=== PATIENT | female | born 1970 | race African-American/Black ===

== ENCOUNTER 2019-03-16 19:09 | Emergency (ER) | payer SELFPAY ==
[~2019-03-16] VITALS: Ht 149.9 cm; Wt 85.7 kg
[2019-03-16] MEDS ORDERED: IV NORMAL SALINE 1000ML BAG 1,000 ML IV SCH (19:17)
[2019-03-16 19:29] LABS: BASO # 0.1 x10^3/uL (0.0-0.2); BASO % 1 % (0-3); EOS # 0.1 x10^3/uL (0.0-0.7); EOS % 1 % (0-3); HEMATOCRIT 41.8 % (36.0-47.0); HEMOGLOBIN 13.3 g/dL (12.0-15.5); LYMPH # 4.4 x10^3/uL (1.0-4.8); LYMPH % 48 % (24-48); MEAN CORPUSCULAR HEMOGLOBIN 29 pg (25-35); MEAN CORPUSCULAR HGB CONC 32 g/dL (31-37); MEAN CORPUSCULAR VOLUME 90 fL (79-100); MONO # 0.5 x10^3/uL (0.0-1.1); MONO % 6 % (0-9); NEUT % 44 % (31-73); PLATELET COUNT 258 x10^3/uL (140-400); RED BLOOD COUNT 4.65 x10^6/uL (3.50-5.40); RED CELL DISTRIBUTION WIDTH 14.5 % (11.5-14.5); WHITE BLOOD COUNT 9.1 x10^3/uL (4.0-11.0)
[2019-03-16] MEDS ORDERED: ASPIRIN CHEWABLE 81 MG TABLET. PO ONE (19:30)
[2019-03-16] MEDS ORDERED: ADENOSINE 6 MG/2 ML VIAL. IV ONE (19:30)
[2019-03-16 19:38] LABS: CALCIUM 8.5 mg/dL (8.5-10.1); CREATININE 1.1 mg/dL (0.6-1.0); GFR 52.8; POTASSIUM 3.7 mmol/L (3.5-5.1)
[2019-03-16 19:46] LABS: ALBUMIN 3.7 g/dL (3.4-5.0); ALBUMIN/GLOBULIN RATIO 0.8 (1.0-1.7); MAGNESIUM 1.5 mg/dL (1.8-2.4); TOTAL BILIRUBIN 0.4 mg/dL (0.2-1.0); TOTAL PROTEIN 8.1 g/dL (6.4-8.2)
--- NOTE | 2019-03-16 19:47 | PHYS DOC ---
Adult General Chief Complaint Chief Complaint: CHEST PAIN HPI HPI Patient is a 48-year-old female who presents with complaint of chest pain and palpitations that started at about 4:00 PM today. Patient has history of SVT and states that her last episode was approximately year ago. She rates pain in her chest a 7 out of 10. She denies any nausea, vomiting or diaphoresis. Patient denies any exacerbating or alleviating factors to the chest pain although does report to some exertional shortness of breath.[] Review of Systems Review of Systems Constitutional: Denies fever or chills [] Respiratory: Positive exertional shortness of breath [] Cardiovascular: No additional information not addressed in HPI [] GI: Denies abdominal pain, nausea, vomiting or diarrhea [] Integument: Denies rash or skin lesions [] Neurologic: Denies headache, focal weakness or sensory changes [] All other systems were reviewed and found to be within normal limits, except as documented in this note. Current Medications Current Medications Current Medications Medications (Trade) Dose Ordered Sig/Natalia Start Time Stop Time Status Last Admin Dose Admin Adenosine (Adenocard) 6 mg 1X ONCE 03/16/19 19:30 03/16/19 19:32 DC Aspirin (Children'S Aspirin) 324 mg 1X ONCE 03/16/19 19:30 03/16/19 19:32 DC 03/16/19 19:37 324 MG Sodium Chloride 1,000 ml @ 1,000 mls/hr Q1H 03/16/19 19:17 03/16/19 20:16 DC 03/16/19 19:30 1,000 MLS/HR Allergies Allergies Allergies Coded Allergies Type Severity Reaction Last Updated Verified Sulfa (Sulfonamide Antibiotics) Allergy Intermediate SWELLING AND ITCHING 03/16/19 Yes Physical Exam Physical Exam Constitutional: Well developed, well nourished, no acute distress, non-toxic appearance. [] HENT: Normocephalic, atraumatic, bilateral external ears normal, oropharynx moist, no oral exudates, nose normal. [] Eyes: PERRLA, EOMI, conjunctiva normal, no discharge. [] Neck: Normal range of motion, no tenderness, supple, no stridor. [] Cardiovascular: Markedly tachycardic rate with regular rhythm[] Lungs & Thorax: Bilateral breath sounds clear to auscultation [] Abdomen: Bowel sounds normal, soft, no tenderness. [] Skin: Warm, dry, no erythema, no rash. [] Extremities: No tenderness, no cyanosis, no clubbing, ROM intact, no edema. [] Neurologic: Alert and oriented X 3, no focal deficits noted. [] Current Patient Data Vital Signs Vital Signs Date Time Temp Pulse Resp B/P (MAP) Pulse Ox O2 Delivery O2 Flow Rate FiO2 03/16/19 20:12 86 18 116/69 (85) 97 Room Air 03/16/19 19:18 97.6 97.6 Lab Values Laboratory Tests Test 03/16/19 19:19 White Blood Count 9.1 x10^3/uL (4.0-11.0) Red Blood Count 4.65 x10^6/uL (3.50-5.40) Hemoglobin 13.3 g/dL (12.0-15.5) Hematocrit 41.8 % (36.0-47.0) Mean Corpuscular Volume 90 fL (79-100) Mean Corpuscular Hemoglobin 29 pg (25-35) Mean Corpuscular Hemoglobin Concent 32 g/dL (31-37) Red Cell Distribution Width 14.5 % (11.5-14.5) Platelet Count 258 x10^3/uL (140-400) Neutrophils (%) (Auto) 44 % (31-73) Lymphocytes (%) (Auto) 48 % (24-48) Monocytes (%) (Auto) 6 % (0-9) Eosinophils (%) (Auto) 1 % (0-3) Basophils (%) (Auto) 1 % (0-3) Neutrophils # (Auto) 4.0 x10^3/uL (1.8-7.7) Lymphocytes # (Auto) 4.4 x10^3/uL (1.0-4.8) Monocytes # (Auto) 0.5 x10^3/uL (0.0-1.1) Eosinophils # (Auto) 0.1 x10^3/uL (0.0-0.7) Basophils # (Auto) 0.1 x10^3/uL (0.0-0.2) Sodium Level 141 mmol/L (136-145) Potassium Level 3.7 mmol/L (3.5-5.1) Chloride Level 102 mmol/L (98-107) Carbon Dioxide Level 28 mmol/L (21-32) Anion Gap 11 (6-14) Blood Urea Nitrogen 7 mg/dL (7-20) Creatinine 1.1 mg/dL (0.6-1.0) H Estimated GFR (Cockcroft-Gault) 52.8 BUN/Creatinine Ratio 6 (6-20) Glucose Level 384 mg/dL (70-99) H Calcium Level 8.5 mg/dL (8.5-10.1) Magnesium Level 1.5 mg/dL (1.8-2.4) L Total Bilirubin 0.4 mg/dL (0.2-1.0) Aspartate Amino Transferase (AST) 49 U/L (15-37) H Alanine Aminotransferase (ALT) 53 U/L (14-59) Alkaline Phosphatase 82 U/L (46-116) Troponin I Quantitative < 0.017 ng/mL (0.000-0.055) IE-Odp-I-Type Natriuretic Peptide 178 pg/mL (0-124) H Total Protein 8.1 g/dL (6.4-8.2) Albumin 3.7 g/dL (3.4-5.0) Albumin/Globulin Ratio 0.8 (1.0-1.7) L Laboratory Tests 03/16/19 19:19 Laboratory Tests 03/16/19 19:19 EKG EKG [] Interpretation Time: EKG demonstrates SVT with rate of 168. Repeat EKG post vagal maneuvers demonstrates sinus rhythm with rate of 94. Radiology/Procedures Radiology/Procedures [] Course & Med Decision Making Course & Med Decision Making Pertinent Labs and Imaging studies reviewed. (See chart for details) Patient moved to room upon arrival was evaluated by your medical staff after which cardiac workup initiated on patient. We were prepared to provide adenosine for treatment of SVT; however, after bearing down/vagal maneuvers, patient converted spontaneously. Patient's workup is returned with findings of hyperglycemia but otherwise essentially unremarkable. Patient was given 4 baby aspirin as well. Patient states that after receiving aspirin, she no longer had any chest discomfort. I did discuss admission with the patient; however, patient states that she does not want be admitted and wants to be discharged home. Patient agrees to return to the emergency room immediately if she has recurrence of chest pain or palpitations. Dragon Disclaimer Dragon Disclaimer This electronic medical record was generated, in whole or in part, using a voice recognition dictation system. Departure Departure Impression: Primary Impression: Supraventricular tachycardia Additional Impression: Chest pain Disposition: 01 HOME, SELF-CARE Condition: STABLE Patient Instructions: Chest Pain (Nonspecific), Supraventricular Tachycardia Additional Instructions: Call to schedule follow-up appointment with your primary care provider first thing Monday morning. If you have recurrence of chest pain or palpitations, return to emergency room right away. Problem Qualifiers Additional Impression: Chest pain Chest pain type: unspecified Qualified Codes: R07.9 - Chest pain, unspecified SPIKE NARAYAN Jr. DO Mar 16, 2019 19:47
[2019-03-16 21:12] VITALS: BP 97/55
--- NOTE | 2019-03-16 21:57 | RAD ---
PORTABLE CHEST 1V History: Chest pain Comparison: None. Findings: Single view of the chest is submitted. There is no infiltrate, pneumothorax, or effusion. The pericardial cardiac silhouette is within normal limits in size given technique and somewhat suboptimal inspiration. Impression: 1. There is no radiographic evidence of acute cardiopulmonary disease. Electronically signed by: Prince Moe MD (03/16/2019 9:54 PM) [employer]
--- NOTE | 2019-03-17 12:00 | EKG ---
[facility] [address] [place] [address] Test Date: 2019-03-16 Test Time: 19:25:47 Pat Name: JAMEL SANDOVAL Department: Room: Gender: F [employer]acy Technology Instructor: BACILIO : 1970 Requested By: SPIKE NARAYAN Order Number: [id number] Reading MD: Measurements Intervals [place] Rate: 94 P: 47 WI: 186 QRS: 17 QRSD: 82 T: 43 QT: 346 QTc: 438 Interpretive Statements SINUS RHYTHM NO SPECIFIC ECG ABNORMALITIES RI6.01 No previous ECG available for comparison
--- NOTE | 2019-03-18 07:16 | EKG ---
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
== END 2019-03-16 21:48 | disposition home or self-care (01) ==
LOC: ER 19:09
DX: I47.1 Supraventricular tachycardia (principal); Z88.2 Allergy status to sulfonamides
CPT/HCPCS: 36415; 71045; 80053; 83735; 83880; 84484; 85025; 93005; 99285; J7030